=== PATIENT | male | born 1985 | race Caucasian/White ===

== ENCOUNTER → 2021-05-26 16:15 | Outpatient (CLI) | payer BC, SELFPAY | PROVIDERS: Visit Provider Urology | DX: N48.9 Disorder of penis, unspecified (principal); Z20.822 Contact with and (suspected) exposure to COVID-19 | CPT/HCPCS: U0003 ==

== ENCOUNTER → 2021-06-04 09:09 | Day surgery (SDC) | payer BC, SELFPAY ==
--- NOTE | 2021-06-04 11:29 | SUR.PREOP ---
0945: case cancelled per Dr. Stevens due to pt. being covid positive.
== END ==
PROVIDERS: PCP Family Medicine; Visit Provider Urology
DX: Z53.8 Procedure and treatment not carried out for other reasons (principal); U07.1 COVID-19

== ENCOUNTER → 2022-04-29 17:32 | Outpatient (CLI) | payer BC, OTHER, SELFPAY | PROVIDERS: PCP Nurse Practitioner Family; Visit Provider Nurse Practitioner Family | DX: R55 Syncope and collapse (principal) | CPT/HCPCS: 93270 ==

== ENCOUNTER → 2022-05-30 13:27 | Outpatient (CLI) | payer BC, OTHER, SELFPAY | PROVIDERS: PCP Nurse Practitioner Family; Visit Provider Nurse Practitioner Family | DX: G47.30 Sleep apnea, unspecified (principal); R55 Syncope and collapse; R06.83 Snoring | CPT/HCPCS: G0399 ==

== ENCOUNTER 2024-03-21 16:06 | Emergency (ER) | payer BC, OTHER, SELFPAY ==
--- NOTE | 2024-03-21 16:10 | ED_ITS ---
<Statement entered by Cj Denny MD - 03/21/24 17:17> I was consulted by the KRUNAL, and we discussed the complexity of the problems being addressed. I approved the treatment and management plan for this patient's care in the emergency department, thus performing a substantive portion of the medical decision making. Cj Denny MD Discharge Plan Disposition Patient Disposition: Home, Self-Care Condition: Good Prescriptions Prescriptions: New cephalexin 500 mg capsule 500 mg PO BID 10 Days Qty: 20 0RF No Action ofloxacin 0.3 % drops Ear-Right Referrals Follow up/Referrals: Jd Roy DO [Staff Physician] - See instructions (Foreign body right thumb) Renee Gloria APRN [Primary Care Provider] - See instructions Activity Restrictions/Add. Instructions Additional Instructions/Restrictions: Please let wound be open to air is much as possible. Cover A dirty environment with an occlusive dressing only as long as needed. I am going to refer you to orthopedics for wound follow-up. Please call in the morning to make an appointment. Clinical Impressions Clinical Impression: Foreign body of right thumb Qualifiers: Encounter type: initial encounter Qualified Code(s): S60.351A - Superficial foreign body of right thumb, initial encounter Instructions Patient Instructions: DI for Removal of Foreign Body From Skin Discharge ED Provider: Cj Denny General Adult HPI General Chief complaint: Skin/Abscess/Foreign Body Stated complaint: AO 03/21/24 Right thumb injury Time Seen by Provider: 03/21/24 16:10 History of Present Illness HPI narrative: Patient presents for evaluation for foreign body to his right thumb. Patient was working in his yard pulling weeds from his flower bed and what he thought was we turned out to be a stick and unfortunately impaled the distal tip of his right thumb. Patient presents with stent still in place. He denies loss of motor or sensation but it does hurt to move. Related Data Home Medications Medication Instructions Recorded Confirmed ofloxacin 0.3 % ear drops drp Ear-Right 02/12/24 02/12/24 Previous Rx's Medication Instructions Recorded cephalexin 500 mg capsule 500 mg PO BID 10 days #20 caps 03/21/24 Allergies Allergy/AdvReac Type Severity Reaction Status Date / Time Penicillins [PENICILLINS] Allergy Unknown Verified 02/12/24 09:52 [facility] Disclaimer: The information contained in this section may have been updated after the patient was seen, as this information can be updated by other users. Medical History (Updated 03/21/24 @ 17:07 by JEANNA Pennington) Impacted cerumen of left ear Otalgia, right ear Impacted cerumen, right ear Social History Smoking Status: Current every day smoker tobacco type: cigarettes packs per day: 1 alcohol intake: never current occupational status: other Travel in the last 8 weeks: None household members: spouse and family housing: house ROS Obtained: Yes Systems reviewed as appropriate & no additional complaints except as documented Physical Exam General General appearance: alert and in no apparent distress Respiratory Respiratory exam: Present normal lung sounds bilaterally Cardiovascular Cardiovascular exam: Present regular rate and normal rhythm Expanded Upper Extremity Exam Right: Hand L/R front image: 2 1. foreign body Hand L/R back image: 2 1. Neurological Exam Neurological exam: Present alert, oriented X3 and CN II-XII intact Medical Decision Making Medical Records Medical records reviewed: Yes I reviewed the patient's medical records. Scooby Inquiry Pt receiving controlled substance: No Vital Signs: 03/21/24 16:15 Temperature 98.2 F Temperature Source Oral Pulse Rate [Left Radial] 103 H Respiratory Rate 20 Blood Pressure [Right Arm] 138/85 Blood Pressure Mean [Right Arm] 102 02 Sat by Pulse Oximetry 97 Oxygen Delivery Method Room Air Lab Data Lab results reviewed: Yes I reviewed the patient's lab results. Orders (Tests/Meds): ED MEDICATIONS Discontinued Medications Generic Name Dose Route Start Last Admin Trade Name Fang PRN Reason Stop Dose Admin Cephalexin HCl 500 mg 03/21/24 16:13 03/21/24 16:21 Cephalexin 500mg Capsule PO 03/21/24 16:14 500 mg ONCE ONE Administration Lidocaine HCl 10 ml 03/21/24 16:14 03/21/24 16:21 Lidocaine 1% 10ml Mdv SQ 03/21/24 16:15 10 ml ONCE ONE Administration Oxycodone HCl 5 mg 03/21/24 16:28 03/21/24 16:32 Oxycodone 5mg Immediate Release Tablet PO 03/21/24 16:29 5 mg ONCE ONE Administration ORDERS Category Date Time Status Finger XR right minimum 2 views [XR finger RT min 2V] Exams 03/21/24 16:12 Taken Stat Medical Decision Narrative: In summary patient is a 39-year-old male who presents to the emergency department for evaluation of foreign body right thumb. Patient is hemodynamically stable upon arrival, febrile. Physical exam is remarkable for foreign body at the distal tip of his right thumb. It enters from the volar surface and exit on the dorsal just distal from the nail. Patient has full range of motion neurovascularly intact.. Differential diagnosis includes simple foreign body versus bony involvement versus tendon involvement or joint involvement [place]. Initial workup will be conducted with plain film x-ray. Initial interventions include Tdap Keflex oxycodone. Initial workup reviewed by me and my informal interpretation of his plain film x-ray shows that he only has soft tissue involvement no evidence of bony involvement. Patient underwent local anesthesia and extraction of the [place] foreign body successfully. Upon repeat evaluation patient has still full range of motion and neurovascularly intact. Given this patient is appropriate for discharge with prescription of Keflex sent to his pharmacy and a referral to orthopedics for wound follow-up Procedures Foreign Body Removal Time Out Performed: No Site: right and hand (Thumb) Description of foreign body: other ([place] stick) Sedation/Analgesia: other (Digital block with lidocaine) Technique: manual removal and incision made to facilitate removal Confirmed by:: direct visualization Complications: none Post-procedure exam: awake, alert Neurovascular: normal distal pulse, normal capillary fill, distal light touch sensation intact, distal motor function normal and no change from pre-procedure Critical Care Critical Care Time Critical Care Time: No
--- NOTE | 2024-03-21 16:12 | XR_ITS ---
PROCEDURE INFORMATION: Exam: XR Right Finger(s) Exam date and time: 03/21/2024 4:28 PM Age: 39 years old Clinical indication: Screening exam; Right thumb foreign body TECHNIQUE: Imaging protocol: Radiologic exam of the right fingers. Views: Minimum 2 views. COMPARISON: CR XR HAND RT MIN 3V 06/26/2019 8:48 PM FINDINGS: Bones/joints: No visible fracture or dislocation. Soft tissues: No radiopaque foreign body. IMPRESSION: 1. No visible fracture or dislocation. 2. No radiopaque foreign body.
[2024-03-21 16:15] VITALS: BP 138/85; PULSE 103; RESP 20; TEMP 36.8; O2SAT 97; BMI 39.0
[2024-03-21] MEDS: LIDOCAINE 1% 10ML MDV 10 ML SQ (16:21)
[2024-03-21] MEDS: cephALEXin 500MG CAPSULE 500 MG PO (16:21)
[2024-03-21] MEDS: OXYCODONE 5MG IMMEDIATE RELEASE TABLET 5 MG PO (16:32)
[2024-03-21 17:14] VITALS: BP 131/79; PULSE 91; RESP 20; TEMP 36.8; O2SAT 97
== END 2024-03-21 17:20 | disposition home or self-care (01) ==
PROVIDERS: Emergency Provider Emergency Medicine; PCP Nurse Practitioner Family
DX: S60.351A Superficial foreign body of right thumb, initial encounter (principal); W45.8XXA Other foreign body or object entering through skin, initial encounter; F17.210 Nicotine dependence, cigarettes, uncomplicated
CPT/HCPCS: 10120; 73140; 99283

== ENCOUNTER 2024-04-10 12:46 | Outpatient (CLI) | payer BC, OTHER, SELFPAY ==
--- NOTE | 2024-04-10 12:51 | XR_ITS ---
FINAL REPORT CLINICAL HISTORY: MILD ASTHMA FINDINGS: Two views of the chest were obtained. The heart size and pulmonary vascularity are within normal limits. The mediastinum is normal. No acute pulmonary abnormality is identified. There is no pneumothorax. The bony thorax is intact. IMPRESSION: No active cardiopulmonary disease. Reviewed, Interpreted and Dictated by Pio Keene III, MD Transcribed by Shira Jesus Authenticated and [facility]
== END 2024-04-10 23:59 | disposition home or self-care (01) ==
LOC: RAD 12:47
PROVIDERS: PCP Physician Assistant; Visit Provider Physician Assistant
DX: J45.21 Mild intermittent asthma with (acute) exacerbation (principal); F17.210 Nicotine dependence, cigarettes, uncomplicated
CPT/HCPCS: 71046

== ENCOUNTER 2025-08-08 14:22 | Outpatient (CLI) | payer BC, OTHER, SELFPAY ==
--- NOTE | 2025-08-08 14:27 | XR_ITS ---
FINAL REPORT CLINICAL HISTORY: pain with movement..PAIN AFTER SNEEZING COMPARISON: None FINDINGS: 5 views of the right ribs were obtained. There is no acute fracture. The visualized lungs are clear. No pneumothorax is identified. IMPRESSION: No rib fracture or pneumothorax identified. Reviewed, Interpreted and Dictated by Ivana Larson MD Transcribed by Keri Thorpe Authenticated and [facility]
== END 2025-08-08 23:59 | disposition home or self-care (01) ==
LOC: RAD 14:23
PROVIDERS: PCP Internal Medicine Adolescent Medicine; Visit Provider Nurse Practitioner
DX: R07.89 Other chest pain (principal)
CPT/HCPCS: 71101